=== PATIENT | male | born 1980 | race Asian ===

== ENCOUNTER 2018-05-09 03:46 | Emergency (ER) | payer OTHER ==
[~2018-05-09] VITALS: Ht 170.2 cm; Wt 61.2 kg
[2018-05-09 04:09] VITALS: BP 138/94; TEMP 97.5
== END 2018-05-09 04:11 | disposition home or self-care (01) ==
LOC: ED 03:46
DX: F22 Delusional disorders (principal)
CPT/HCPCS: 99281

== ENCOUNTER 2018-05-25 08:57 | Emergency (ER) | payer OTHER ==
[~2018-05-25] VITALS: Ht 170.2 cm; Wt 61.2 kg
[2018-05-25 09:05] VITALS: BP 135/90; TEMP 98.1
[2018-05-25] MEDS ORDERED: SUBOXONE SL (09:17)
[2018-05-25 09:39] LABS: PLATELET COUNT 298 K/uL (142-355)
[2018-05-25 09:48] LABS: POTASSIUM 3.9 mmol/L (3.6-5.2); SODIUM 138 mmol/L (136-145)
== END 2018-05-25 13:30 | disposition left against medical advice (07) ==
LOC: ED 08:57 → EDBD 08:57 → ED 13:30
PROVIDERS: Emergency Medicine
DX: F20.9 Schizophrenia, unspecified (principal)
CPT/HCPCS: 36415; 80053; 80307; 80329; 81000; 85027; 93005; 99285

== ENCOUNTER 2018-06-01 05:32 | Emergency (ER) | payer OTHER ==
[~2018-06-01] VITALS: Ht 170.2 cm; Wt 61.2 kg
[~2018-06-01 05:32] MED LIST: SUBOXONE SL
[2018-06-01 05:38] VITALS: BP 132/93; TEMP 98.5
[2018-06-01 05:57] LABS: PLATELET COUNT 304 K/uL (142-355)
[2018-06-01 06:05] LABS: POTASSIUM 3.4 mmol/L (3.6-5.2)
== END 2018-06-01 11:45 | disposition home or self-care (01) ==
LOC: ED 05:32
DX: R44.3 Hallucinations, unspecified (principal); F15.10 Other stimulant abuse, uncomplicated
CPT/HCPCS: 36415; 80053; 80307; 80320; 80329; 81000; 85027; 93005; 99285

== ENCOUNTER 2019-08-02 09:01 | Outpatient (CLI) | payer BC | END 2019-08-02 19:20 | disposition home or self-care (01) | LOC: CT 09:01 | DX: R44.0 Auditory hallucinations (principal) ==

== ENCOUNTER 2019-08-25 07:18 | Emergency (ER) | payer OTHER ==
[~2019-08-25] VITALS: Ht 172.7 cm; Wt 63.5 kg
[2019-08-25 07:23] VITALS: BP 142/96; TEMP 98.6
[2019-08-25 07:56] LABS: PLATELET COUNT 277 K/uL (142-355)
[2019-08-25 08:06] LABS: POTASSIUM 4.1 mmol/L (3.6-5.2)
== END 2019-08-25 08:35 | disposition home or self-care (01) ==
LOC: ED 07:18
PROVIDERS: Emergency Medicine
DX: T75.89XA Other specified effects of external causes, initial encounter (principal); X58.XXXA Exposure to other specified factors, initial encounter
CPT/HCPCS: 80053; 80307; 81000; 85027; 99283

== ENCOUNTER 2022-11-04 15:16 | Emergency (ER) | payer OTHER ==
[~2022-11-04] VITALS: Ht 172.7 cm; Wt 72.6 kg
[2022-11-04 15:24] VITALS: BP 115/74; TEMP 98.4
== END 2022-11-04 17:52 | disposition home or self-care (01) ==
LOC: ED 15:16
DX: S90.112A Contusion of left great toe without damage to nail, initial encounter (principal); X58.XXXA Exposure to other specified factors, initial encounter; F17.210 Nicotine dependence, cigarettes, uncomplicated
CPT/HCPCS: 99282